=== PATIENT | male | born 1955 | race Caucasian/White ===

== ENCOUNTER → 2020-07-23 | Outpatient (CLI) | payer MEDICARE ==
[~2020-07-23] MED LIST: AMIO200T42 PO; APIX2.5T PO; LISI-167 PO; SENN1TAB67 PO; SEVE800T7 PO
== END | disposition home or self-care (01) ==
LOC: STAR 10:52
PROVIDERS: ATTEND Surgery
DX: Z01.812 Encounter for preprocedural laboratory examination (principal); Z20.822 Contact with and (suspected) exposure to COVID-19; N18.6 End stage renal disease
CPT/HCPCS: 93005; U0003

== ENCOUNTER 2020-07-29 12:56 | Day surgery (SDC) | payer MEDICARE ==
[~2020-07-29] VITALS: Ht 172.7 cm; Wt 59.2 kg
[2020-07-29] MEDS ORDERED: LACTATED RINGERS 1,000 ML IV SCH (13:30)
[2020-07-29] MEDS ORDERED: CHLORHEXIDINE 15 ML UDC PO ONE (13:30)
[2020-07-29 13:47] VITALS: BP 138/96
[2020-07-29 13:57] LABS: ANION GAP 9 mmol/L (5-15); CALCIUM 9.1 mg/dL (8.5-10.1); CHLORIDE 99 mmol/L (98-107); CREATININE 5.88 mg/dL (0.7-1.3)
[2020-07-29] MEDS ORDERED: SODIUM CHLORIDE 0.9% 1,000 ML IV SCH (14:00)
[2020-07-29] MEDS ORDERED: MIDAZOLAM 1 MG/ML, 2ML ONE (14:50)
[2020-07-29] MEDS ORDERED: MIDAZOLAM 1 MG/ML, 2ML IVPush ONE (15:00)
[2020-07-29] MEDS ORDERED: FENTANYL PF 100 MCG/2ML ONE (15:06)
[2020-07-29] MEDS ORDERED: HEPARIN 5,000 UNITS/ML, 1ML ONE (15:22)
[2020-07-29] MEDS ORDERED: BUPIVACAINE/PF 0.25% ONE (15:22)
[2020-07-29] MEDS ORDERED: PAPAVERINE 30 MG/ML, 2ML ONE (15:22)
[2020-07-29] MEDS ORDERED: HEPARIN 1,000 UNITS/ML, 30ML ONE (15:23)
[2020-07-29] MEDS ORDERED: LIDOCAINE/PF 1%, 30ML ONE (15:23)
[2020-07-29] MEDS ORDERED: HEPARIN 1,000 UNITS/ML, 10ML ONE (15:40)
[2020-07-29] MEDS ORDERED: ONDANSETRON 2MG/ML, 2ML ONE (15:54)
[2020-07-29] MEDS ORDERED: DEXAMETHASONE 4 MG/ML, 1ML ONE (15:54)
[2020-07-29] MEDS ORDERED: PROPOFOL 10 MG/ML, 20ML ONE (15:54)
[2020-07-29] MEDS ORDERED: CEFAZOLIN 1,000 MG ONE (15:54)
[2020-07-29] MEDS ORDERED: PROMETHAZINE 25 MG/ML, 1ML IVPush PRN (16:30)
[2020-07-29] MEDS ORDERED: MEPERIDINE/PF 25MG/0.5ML IVPush PRN (16:30)
[2020-07-29] MEDS ORDERED: FENTANYL PF 100 MCG/2ML IV PRN (16:30)
[2020-07-29] MEDS ORDERED: HYDROcodone/APAP 7.5-325MG/15ML UDC PO PRN (16:30)
[2020-07-29] MEDS ORDERED: ONDANSETRON 2MG/ML, 2ML IVPush PRN (16:30)
[2020-07-29] MEDS ORDERED: OXYcodone 5 MG/5 ML ORAL.SOL UDC PO PRN (16:30)
[2020-07-29] MEDS ORDERED: HYDROmorphone 1 MG/ML, 1ML INJ IVPush PRN (16:30)
== END 2020-07-29 19:05 | disposition home or self-care (01) ==
LOC: OUT 12:56
PROVIDERS: ATTEND Surgery
DX: N18.6 End stage renal disease (principal); I48.91 Unspecified atrial fibrillation; Z88.0 Allergy status to penicillin; Z88.8 Allergy status to other drugs, medicaments and biological substances; Z91.018 Allergy to other foods; Z99.2 Dependence on renal dialysis; Z79.899 Other long term (current) drug therapy
CPT/HCPCS: 36415; 36821; 80048; J0690; J1100; J1644; J2250; J2405; J2704; J3010; J2440